=== PATIENT | male | born 1980 | race Caucasian/White ===

== ENCOUNTER 2017-04-01 03:24 | Emergency (ER) | payer BC ==
[~2017-04-01] VITALS: Ht 188 cm; Wt 81.9 kg
[2017-04-01 03:32] VITALS: Ht 188 cm; Wt 81.9 kg
[2017-04-01 03:35] VITALS: O2SAT 98
[2017-04-01 04:07] LABS: BUN/CREATININE RATIO 22.3 (10-20); CALCIUM 8.3 mg/dl (8.5-10.1); CREATININE 0.93 mg/dl (0.60-1.40); POTASSIUM 3.4 mmol/L (3.5-5.1)
--- NOTE | 2017-04-01 04:11 | EMERGENCY ROOM VISIT NOTE ---
History Report prepared by Jessa: Mariana Mcdaniel Under the Supervision of: Dr. Fadia Hardy D.O. First contact with patient: 03:35 Chief Complaint: ALCOHOL OVERDOSE Stated Complaint: ALCOHOL OVERDOSE Nursing Triage Summary: Pt in town visiting, was out at bars drinking "pitchers". went back to sister's place. Pt has been unresponsive for past hour, sister called EMS. History of Present Illness The patient is a 36 year old male who presents to the Emergency Room with complaints of an alcohol overdose that occurred prior to arrival. Per nursing staff the patient is up visiting the area and doesn't normally drink alcohol. Nursing staff reports that the patient drank several pitchers this evening and then went back to his sister's place and passed out. The history is limited secondary to the patient's alcohol intoxication. Source of History: nursing staff History Limited By: intoxication (alcohol) Onset: prior to arrival Position: other (global) Quality: other (alcohol overdose) Review of Systems The history and ROS are limited secondary to the patient's alcohol intoxication. Past Medical & Surgical Unobtainable secondary to the patient's alcohol intoxication. Family History Unobtainable secondary to the patient's alcohol intoxication. Social History Smoking Status: Never Smoker Alcohol Use: occasionally Current/Historical Medications No Active Prescriptions or Reported Meds Allergies Coded Allergies: No Known Allergies (Unverified , 04/01/17) Physical Exam Vital Signs Date Time Temp Pulse Resp B/P Pulse Ox O2 Delivery O2 Flow Rate FiO2 04/01/17 07:10 90 04/01/17 06:45 75 16 98/75 96 Room Air 04/01/17 06:05 80 16 04/01/17 06:00 96/55 04/01/17 05:35 82 17 04/01/17 05:30 36.3 80 106/54 99 Room Air 04/01/17 05:24 86 17 04/01/17 05:00 104/58 04/01/17 04:54 86 18 93 04/01/17 04:30 96/59 04/01/17 04:24 82 17 93 04/01/17 04:00 100/68 04/01/17 03:54 67 18 95 04/01/17 03:38 74 04/01/17 03:38 55 04/01/17 03:35 98 Room Air 04/01/17 03:33 99/71 5/6/17 03:32 35.2 55 16 99/71 95 Room Air Physical Exam General: Unresponsive, smells of alcohol. HEENT: Head - normocephalic and atraumatic Pupils are 1 mm and nonreactive to light. Extraocular eye muscles are intact, and sclera are anicteric. Nose - moist nasal mucosa without discharge. Mouth - moist buccal mucosa. Oropharynx is nonerythematous and there is no tonsillar exudate or edema noted. Neck: Supple; no JVD, nuchal rigidity, cervical lymphadenopathy. Heart: Regular rate and rhythm. There is a normal S1 and S2 with no murmurs, clicks, or gallops appreciated. Lungs: Clear to auscultation bilaterally with no wheezes, rales, or rhonchi. Abdomen: Soft, completely nontender, nondistended, with good bowel sounds. There are no palpable pulsatile masses or hepatosplenomegaly. There is no guarding, rigidity, or rebound noted. Extremities: No evidence of cyanosis, clubbing, or edema. There are easily palpable peripheral pulses. Skin: cold and dry with good turgor and no rashes. Medical Decision & Procedures Laboratory Results 04/01/17 03:40 Test 04/01/17 03:40 Anion Gap 9.0 mmol/L (3-11) Est Creatinine Clear Calc Drug Dose 129.7 ml/min Estimated GFR () 123.7 Estimated GFR (Non- 106.7 BUN/Creatinine Ratio 22.3 (10-20) Calcium Level 8.3 mg/dl (8.5-10.1) Ethyl Alcohol mg/dL 242.0 mg/dl (0-3) Laboratory results per my review. ED Course 0359: The patient was evaluated in room A4B. A complete history and physical exam was performed. A temperature was taken and the patient was found to be hypothermic. A bear hugger was placed. Laboratory studies were drawn as above. The patient was placed in the prone position to avoid aspiration. He was observing the pvc monitor and pulse oximeter. 0515: The patient remains asleep at this time. His temperature has come up to 36.4. The Dustin hugger was removed. He remains hemodynamically stable. 0630: I reevaluated the patient and he is waking up. He will be clear for discharge between 0800 and 0900. The patient understands and agrees with the treatment plan. 0651: I reevaluated the patient and he is more awake, no longer hypothermic. He is ready for discharge shortly. Medical Decision The patient is a 36 year old male who presents to the ED with an alcohol overdose. Differential diagnosis includes alcohol overdose, drug intoxication, hypothermia, hypoglycemia, head injury. Lab interpretation: alcohol 242, BUN 21, glucose 155, creatinine 0.9 This is a 36-year-old male patient presents emergency department after consuming too much alcohol. The patient was unresponsive initially and found to be hypothermic. Blood alcohol level was 242. He was out to rest here in the emergency Department sober up. Once he was more sober, I discussed the situation with him. I encouraged him to avoid such excessive alcohol use in the future. He denied any trauma or any other injuries. Impression Primary Impression: Alcohol overdose Additional Impression: Hypothermia Scribe Attestation The scribe's documentation has been prepared under my direction and personally reviewed by me in its entirety. I confirm that the note above accurately reflects all work, treatment, procedures, and medical decision making performed by me. Departure Information Dispostion Home / Self-Care Prescriptions No Active Prescriptions or Reported Meds Referrals No Doctor, Assigned (PCP) Forms HOME CARE DOCUMENTATION FORM, IMPORTANT VISIT INFORMATION Patient Instructions ED Overdose Alcohol, My [facility] Additional Instructions Rest. take plenty of clear liquids Avoid such excessive alcohol use in the future. Take tylenol for headache Problem Qualifiers
[2017-04-01 05:30] VITALS: TEMP 36.3
[2017-04-01 06:45] VITALS: BP 98/75; O2SAT 96
[2017-04-01 07:10] VITALS: PULSE 90
== END 2017-04-01 07:35 | disposition home or self-care (01) ==
LOC: C.EDA 03:30
DX: F10.129 Alcohol abuse with intoxication, unspecified (principal); T68.XXXA Hypothermia, initial encounter; X58.XXXA Exposure to other specified factors, initial encounter